=== PATIENT | female | born 1985 | race Caucasian/White ===

== ENCOUNTER 2024-11-13 13:46 | Outpatient (CLI) | payer OTHER, SELFPAY ==
--- NOTE | 2024-11-13 13:52 | MM_ITS ---
WS: [id number] LEFT 3D TOMOSYNTHESIS DIGITAL MAMMOGRAPHY WITH CAD CLINICAL INFORMATION: L BREAST PAIN HISTORY: LEFT breast pain COMPARISON: None. TECHNIQUE: 3 views of the left breast were obtained. FINDINGS: The left breast is composed of heterogeneous fibroglandular density tissue, which can limit the detection of small underlying mass lesions. Palpable marker LEFT breast with normal underlying parenchymal tissue. Ultrasound is pending. No suspicious focal mass, asymmetry, calcifications, or architectural distortion. ULTRASOUND BREAST LEFT TECHNIQUE: Ultrasound left breast focused area of concern. CLINICAL INFORMATION: L BREAST PAIN FINDINGS: Ultrasound LEFT breast in the area of concern at the 3-6 o'clock position normal underlying parenchymal tissue. No cystic or solid lesions. No suspicious findings to target for biopsy. MM/MM diag LT tomosynthesis [id number] IMPRESSION: DENSITY: The breasts are heterogeneously dense, which may obscure small masses. BI-RADS: 1 - Negative FOLLOW UP: Age 40 Recommend annual screening mammography age 40
== END 2024-11-13 13:47 | disposition home or self-care (01) ==
LOC: RAD 13:48
PROVIDERS: Family Provider Family Medicine; PCP Nurse Practitioner Family; Visit Provider Nurse Practitioner Family
DX: R92.332 Mammographic heterogeneous density, left breast (principal); N64.4 Mastodynia
CPT/HCPCS: 76642; 77061; G0279